=== PATIENT | female | born 1990 | race African-American/Black ===

== ENCOUNTER 2022-02-23 15:31 | Observation (INO) | payer OTHER, SELFPAY ==
[2022-02-23] VITALS (38 sets, daily range): BP systolic 113–170; BP diastolic 63–130; PULSE 81–115; RESP 14–29; TEMP 36.6; O2SAT 99–100
--- NOTE | ~2022-02-23 | CT_ITS ---
EXAMINATION: CT cervical spine wo con DATE: 02/23/2022 17:16 INDICATION: Neck pain after trauma TECHNIQUE: Computed tomography (CT) of the cervical spine was performed without intravenous contrast. The dose-length product was 437 mGy-cm. Automated exposure control and iterative reconstruction tech [employer] were employed. COMPARISON: None FINDINGS: Lung apices are normal. Straightening of cervical lordosis, likely due to muscle spasm or p atient positioning. No significant paraspinal soft tissue abnormality. Craniovertebral junction is no rmal. Odontoid process within normal limits. No evidence for perched facet. Normal cervical alignment . IMPRESSION: 1. No acute abnormality of the cervical spine. Reviewed, dictated and finalized at location A.
--- NOTE | ~2022-02-23 | XR_ITS ---
XR knee RT 3V DATE: 02/23/2022 17:04 INDICATION: Fall down stairs. Right knee injury, pain TECHNIQUE: 3 views COMPARISON: None FINDINGS: No fracture or dislocation or joint effusion. No periosteal reaction or bone destruction. Mild loss of height of the department joint space. No spurring, radial opaque intra-articular loose b dave or chondrocalcinosis. IMPRESSION: No fracture or dislocation or joint effusion Mild loss of height of medial compartment joint space Reviewed, dictated and finalized at location B.
--- NOTE | ~2022-02-23 | US_ITS ---
EXAMINATION: US OB follow up DATE: 02/23/2022 16:54 INDICATION: Status post fall. . TECHNIQUE: Real-time transabdominal obstetric ultrasound. FINDINGS: No prior studies for comparison. There is a single living fetus in vertex presentation. The placenta is fundal without placenta previ a. cardiac activity and movement is noted with a heart rate of 173 beats per minute. T he amniotic fluid volume is normal. LEDY measures 14 cm. The following biometric data were obtained: BPD: 85mm corresponds to gestational age 34 weeks 1 days. Head circumference: 318mm corresponds to gestational age 35 weeks 6 days. Abdominal circumference: 294mm corresponds to gestational age 33 weeks 3 days. Femur length: 64mm corresponds to gestational age 33 weeks 0 days. Estimated weight: 2232grams +/- 335grams.] IMPRESSION: 1. Single living intrauterine in vertex presentation with an estimated gestational age of 34 weeks 1 days by current ultrasound. 2. The placenta is grossly normal, without suggestion of placenta abruption. However, ultrasound is not diagnostic of abruption since acute hemorrhage can be isoechoic to be placenta. Recommend clinic al correlation. Reviewed, dictated and finalized at location A. IMPRESSION: 1. Single living intrauterine in vertex presentation with an estimat ed gestational age of 34 weeks 1 days by current ultrasound. 2. The placenta is grossly normal, without suggestion of placenta abruption. H owever, ultrasound is not diagnostic of abruption since acute hemorrhage can be isoechoic to be placenta. Recommend clinical correlation.
[2022-02-23 15:42] LABS: Glucose Point of Care 84 mg/dl (65-105)
--- NOTE | 2022-02-23 15:52 | PC.NURSE ---
Patient informed Carito in radiology that she would like to wait for the ultrasound before anything else to make sure baby is okay.
[2022-02-23 16:38] LABS: Basophils Percent Auto 0.2 % (0.2-1.2); Hematocrit 35.2 % (37.0-47.0); Hemoglobin 11.5 g/dL (12.0-15.0); Immature Granulocyte Absolute 0.14 K/mm3 (0.00-0.031); Immature Granulocyte Percent A 1.4 % (0-0.5); Lymphocytes Absolute Auto 1.84 K/mm3 (0.9-3.2); Mean Corpuscular HGB Conc 32.7 g/dl (32-36); Mean Corpuscular Hemoglobin 28.6 pg (26-34); Mean Corpuscular Volume 87.6 fl (80-100); Mean Platelet Volume 12.2 fl (7.4-10.4); Monocytes Absolute Auto 0.7 K/mm3 (0.1-0.6); Monocytes Percent Auto 7.2 % (2.6-8.5); Neutrophils Absolute Auto 7.5 K/mm3 (1.3-6.7); Neutrophils Percent Auto 73.2 % (45.5-73.1); Platelet Count Result 227 k/mm3 (150-375); Red Blood Count 4.02 M/mm3 (4.2-5.4); Red Cell Distribution Width 14.5 % (11.5-14.5); White Blood Count 10.2 K/mm3 (4.5-10.0)
[2022-02-23] MEDS: SODIUM CHLORIDE 0.9% IV 1,000 ML 999 ML IV CONT (16:38)
--- NOTE | 2022-02-23 16:40 | PC.NURSE ---
VALENTINA Angela from OB called creative writer to inform creative writer that during the NST they performed patient is kathy alot. Convention Services Manager consulted Dr. Braswell and orders for IV fluids given.
[2022-02-23 16:45] LABS: Alanine Aminotransferase 17 U/L (6-35); Albumin Level 3.4 g/dL (3.5-5.1); Alkaline Phosphatase 125 U/L (38-126); Anion Gap 11 mmol/L (8-16); Aspartate Amino Transferase 26 U/L (14-36); Bilirubin,Total 0.4 mg/dL (0.2-1.3); Blood Urea Nitrogen 4 mg/dL (7-17); Carbon Dioxide 17 mmol/L (22-30); Chloride 108 mmol/L (98-107); Estimated CRCL calculation 162 ml/min; Estimated Glomerular Filt Rate > 60; Glucose 77 mg/dL (65-110); Potassium 3.6 mmol/L (3.4-5.0); Sodium 136 mmol/L (137-145)
--- NOTE | 2022-02-23 17:18 | ED.GENADULT ---
HPI - General Adult General Chief complaint: Fall Stated complaint: fell downstairs Time Seen by Provider: 02/23/22 15:32 History of Present Illness HPI narrative: Patient is a 31-year-old female who is approximately 34 weeks in gestation that presents to the ER after a fall down some steps. She was alf down her stairs when the handrail pulled out of the wall and she fell forwards. She is unsure if she struck her abdomen and she did not lose consciousness. She reports that occurred too quickly for her to know what actually got injured. She does have pain in her right knee and has limitation in bending due to the discomfort. She also reports pain to her right thumb. No change in vision or hearing. She is having no abdominal pain at this time. No vaginal bleeding or loss of fluid from her vagina. She is seen by a technical agronomist in [facility], she is also followed by maternal- medicine at [facility] due to the fact that she has gestational diabetes and she has a cerclage that is in place. Patient is also having pain in her left neck that is worse with turning her head. No numbness or tingling upper or lower extremities. Related Data Allergies Allergy/AdvReac Type Severity Reaction Status Date / Time No Known Allergies Allergy Verified 02/23/22 17:22 Review of Systems Review of Systems: All systems reviewed & are unremarkable except as noted in HPI and below Constitutional: Constitutional: Denies chills, Denies fatigue and Denies fever(s) Eyes: Eyes: Denies change in vision ENT: Denies nasal congestion and Denies sore throat Gastrointestinal: Gastrointestinal: Denies abdominal pain, Denies nausea and Denies vomiting Genitourinary: Genitourinary: Denies abnormal vaginal bleeding, Denies nocturia, Denies dysuria, Denies pelvic pain and Denies vaginal discharge Musculoskeletal: Musculoskeletal: Denies myalgias, Reports arthralgias and Denies joint swelling Neurologic: Denies syncope, Denies headache(s) and Denies focal weakness PMFSH Past Medical History Medical History (Updated 02/23/22 @ 17:59 by Levon Braswell MD) Cervical cerclage suture present Gestational diabetes Surgical History Surgical History (Updated 02/23/22 @ 17:21 by Levon Braswell MD) No pertinent past surgical history Social History Social History (Updated 02/23/22 @ 17:21 by Levon Braswell MD) Smoking status: Never smoker Exam Narrative: GENERAL: Well-appearing, well-nourished, and in no acute distress. HEAD: Normocephalic, atraumatic. EYES: PERRL and EOMI. small abrasion lateral to the left eye. ENT: Nares clear, no rhinorrhea or epistaxis. Mucous membranes moist. NECK: Supple. In place. No midline tenderness but does have left paraspinal muscle tenderness without spasm. CHEST: Clear to auscultation. No respiratory distress. HEART: Regular rate and rhythm. Normal peripheral pulses. ABDOMEN: Soft, gravid abdomen with positive movement and slight discomfort on the right lower aspect without bruising or abrasion or swelling. EXTREMITIES: Tender palpation medial aspect right knee with limited range of motion due to pain. No effusion/abrasion/contusion. Normal range of motion of the left lower extremity and bilateral upper extremities. There is mild tenderness over the base of the thumb on the right side. SKIN: Warm, dry, no rash. NEURO: Alert and oriented x3. PSYCH: Normal mood and affect. Course Course Emergency Course: Patient resting comfortably. C-collar cleared. Informed of results. Discussed case with Dr. Bailey. He would like patient sent over to OB for some continuous monitoring. Patient has requested an Jonathan wrap for her knee which she has now been just fine. Vital Signs Vital signs: Vital Signs Temperature 97.9 F 02/23/22 15:33 Pulse Rate 115 H 02/23/22 15:33 Respiratory Rate 20 02/23/22 15:33 Pulse Oximetry 100 02/23/22 15:33 Oxygen Delivery Room Air 02/23/22 15:33 [place]
--- NOTE | 2022-02-23 18:00 | PC.NURSE ---
Per Dr. Braswell, patient to be discharged from the ED and taken to OB for NST.
[2022-02-23] MEDS: LACTATED RINGERS 1,000 ML 999 ML IV CONT (19:10)
[2022-02-23] MEDS: TERBUTALINE SULFATE 1 MG/ML VIAL 0.25 MG SUB-Q (19:10)
[2022-02-23] MEDS: NIFEdipine 10 MG CAPSULE 20 MG PO (19:54)
--- NOTE | 2022-02-23 20:19 | PM.IMHP ---
H&P: HPI History of Present Illness Date/Time: 02/23/22 20:19 Chief Complaint: Fall, contractions Narrative: This patient is a 31-year-old multiparous female at 33 weeks and 2/7 days. patient has history of her delivery, incompetent cervix and has a cerclage placed. She reports good movement. She denies any loss of fluid, she denies any vaginal bleeding. She does report contractions. her contractions are regular. Reports having contractions about every 7 minutes at this time. She reports a fall at home. Reports knee pain. She also reports some shoulder pain. She was seen in the ER. She was evaluated there for her trauma. She presented to labor and delivery for prolonged monitoring. She was uncomfortable with contractions. She reports moderate discomfort with each contraction. Review of Systems Review of Systems: All systems reviewed & are unremarkable except as noted in HPI and below Constitutional: Constitutional: Denies chills, Denies fatigue, Denies fever(s) and Denies weakness Eyes: Eyes: Denies blurry vision, Denies change in vision, Denies loss of peripheral vision, Denies loss of vision, Denies other visual disturbances and Denies eye pain ENT: Denies vertigo, Denies dizziness, Denies hearing loss, Denies mouth pain, Denies nasal obstruction, Denies neck mass and Denies neck pain Cardiovascular: Cardiovascular: Denies chest pain, Denies diaphoresis, Denies syncope, Denies leg edema and Denies dyspnea Respiratory: Respiratory: Denies chest congestion, Denies cough, Denies hemoptysis, Denies dyspnea and Denies wheezing Gastrointestinal: Gastrointestinal: Denies abdominal pain, Denies constipation, Denies diarrhea, Denies nausea and Denies vomiting Genitourinary: Genitourinary: Denies hematuria, Denies change in libido, Denies nocturia, Denies genital lesions, Denies flank pain and Denies urinary urgency Musculoskeletal: Musculoskeletal: Denies abnormal gait, Denies back pain, Denies myalgias, Denies arthralgias, Denies joint swelling, Denies muscle weakness and Denies neck pain Integumentary/Breasts: Skin/Breast: Denies swelling, Denies breast pain, Denies breast mass, Denies dry skin, Denies nipple discharge, Denies unusual bruising and Denies jaundice Neurologic: Denies Neuro-related abnormal movements, Denies Abnormal speech present, Denies abnormal gait, Denies behavioral changes, Denies confusion, Denies vertigo, Denies dizziness, Denies syncope, Denies loss of vision, Denies memory loss, Denies convulsions and Denies weakness Psychiatric: Psychiatric: Denies abnormal sleep pattern, Denies behavioral changes, Denies change in libido, Denies confusion, Denies depression, Denies anhedonia and Denies memory loss Endocrine: Endocrine: Reports no additional endocrine complaints, Denies change in libido and Denies fatigue Hematologic/Lymphatic: Hematologic/Lymphatic: Reports no additional hematologic/lymphatic complaints Allergic/Immunologic: Allergic/Immunologic: Reports no additional allergic/immunologic complaints and Denies wheezing PMFSH Past Medical History Medical History (Updated 02/23/22 @ 20:23 by Nemesio Bailey MD) Cervical cerclage suture present Gestational diabetes Surgical History Surgical History (Updated 02/23/22 @ 17:21 by Levon Braswell MD) No pertinent past surgical history Social History Social History (Updated 02/23/22 @ 17:21 by Levon Braswell MD) Smoking status: Never smoker Meds Home Medications and Allergies Allergies Allergy/AdvReac Type Severity Reaction Status Date / Time No Known Allergies Allergy Verified 02/23/22 17:22 Vital Signs Vital Signs - 24 hr 02/23/22 15:33 02/23/22 15:39 02/23/22 15:41 Temperature 97.9 F Pulse Rate 115 H 89 95 Respiratory Rate 20 21 H 19 Blood Pressure 170/130 H 128/94 H Pulse Oximetry 100 99 99 Oxygen Delivery Room Air 02/23/22 15:46 02/23/22 16:01 02/23/22 16:16 Temperature Pulse Rat
--- NOTE | 2022-02-23 20:24 | OBADM ---
This patient, Karen Brooke, admitted to the OB room [facility] for observation. Patient/family oriented to hospital policies and general routines including ID bracelet, bed and alarms, visiting hours, pain management, procedures, bathroom and other care routines, personal items, smoking policy, room service/diet, and visiting hours. Patient/Family are encouraged to report perceived risks to care and to ask questions if they do not understand what they are told or what they should do.
== END 2022-02-23 21:19 | disposition home or self-care (01) ==
LOC: ANHED 17:59 → ANHOBPP 18:21
PROVIDERS: Admitting Provider Obstetrics & Gynecology; Emergency Provider Emergency Medicine; Visit Provider Obstetrics & Gynecology
DX: Z04.3 Encounter for examination and observation following other accident (principal); S80.01XA Contusion of right knee, initial encounter; N88.3 Incompetence of cervix uteri; O47.03 False labor before 37 completed weeks of gestation, third trimester; O24.419 Gestational diabetes mellitus in pregnancy, unspecified control; M25.519 Pain in unspecified shoulder; M79.644 Pain in right finger(s); Z3A.33 33 weeks gestation of pregnancy; W10.8XXA Fall (on) (from) other stairs and steps, initial encounter
CPT/HCPCS: 36415; 59025; 72125; 73562; 76816; 80053; 82948; 85025; 85460; 86850; 86900; 86901; 96372; 99199; 99285; A9270; J3105; J7030; J7120

== ENCOUNTER 2022-04-22 15:37 | Emergency (ER) | payer OTHER, SELFPAY ==
[2022-04-22 15:38] VITALS: BP 163/104; PULSE 80; RESP 16; TEMP 36.6; O2SAT 100
[2022-04-22 16:15] VITALS: BP 149/98; PULSE 82; RESP 17; O2SAT 99
[2022-04-22] MEDS: FAMOTIDINE 20 MG/2 ML VIAL IV PUSH (16:49)
[2022-04-22] MEDS: diphenhydrAMINE HCl INJ 50 MG/ML VIAL 25 MG IV PUSH ×2 (16:49→17:43)
--- NOTE | 2022-04-22 16:49 | ED.GENADULT ---
HPI - General Adult General Chief complaint: Allergic Reaction Stated complaint: allergic reaction Time Seen by Provider: 04/22/22 16:06 History of Present Illness HPI narrative: Patient is a 31-year-old female who presents ER with allergic reaction. She reports yesterday at 5 PM she began having itching rash to her neck and groin and her chest. It was under her breast. She went to an ER last night and received an IM shot of corticosteroids and then was also given Benadryl. She was discharged with Benadryl, Pepcid, and a Medrol Dosepak. Patient did take her methylprednisolone today. She reports today she had some [employer] around 1130 and then at 3 PM she started getting recurrent rash to her face and neck and arms. She is itchy over her palms. Her symptoms yesterday occurred after eating [id number] at 1130 but her symptoms did not start until 5 PM. Denies any outdoor exposures or new animals. No changes in her fabric softener or detergent. No one else in the house has similar symptoms. She has not taken any additional Benadryl today. Currently she is also having some tingling in her mouth. She has been taking no ibuprofen she takes no prescription medications prior to onset of the symptoms. Related Data Allergies Allergy/AdvReac Type Severity Reaction Status Date / Time No Known Allergies Allergy Verified 04/22/22 16:07 Review of Systems Review of Systems: All systems reviewed & are unremarkable except as noted in HPI and below Constitutional: Constitutional: Denies chills and Denies fever(s) ENT: Denies nasal congestion and Denies sore throat Cardiovascular: Cardiovascular: Denies chest pain, Denies radiating jaw, neck or arm pain and Denies slow heart rate Respiratory: Respiratory: Denies cough and Denies dyspnea Gastrointestinal: Gastrointestinal: Denies abdominal pain, Denies nausea and Denies vomiting Integumentary/Breasts: Skin/Breast: Reports erythema, Reports rash and Denies skin ulcer Allergic/Immunologic: Allergic/Immunologic: Denies lip swelling, Denies throat swelling, Denies tongue swelling and Denies wheezing PMFSH Past Medical History Medical History (Updated 04/22/22 @ 18:40 by Levon Braswell MD) Cervical cerclage suture present Gestational diabetes Surgical History Surgical History (Updated 02/23/22 @ 17:21 by Levon Braswell MD) No pertinent past surgical history Social History Social History (Updated 02/23/22 @ 17:21 by Levon Braswell MD) Smoking status: Never smoker Exam Narrative: GENERAL: Well-appearing, well-nourished, and in no acute distress. HEAD: Normocephalic, atraumatic. EYES: PERRL and EOMI. ENT: Mucous membranes moist. Normal-appearing posterior oropharynx. CHEST: Clear to auscultation. No respiratory distress. HEART: Regular rate and rhythm. Normal peripheral pulses. ABDOMEN: Soft, nontender, nondistende. EXTREMITIES: Normal range of motion. No edema. SKIN: Warm, dry. Urticarial rash over the bridge of the nose, around the lips and midline forehead. She also has red urticaria to the palms and rash to bilateral flanks with some excoriations. NEURO: Alert and oriented x3. PSYCH: Normal mood and affect. Course Course Emergency Course: Rash significant improved but not all the way gone after Benadryl 50 mg and IV Pepcid. No difficulty breathing or swallowing and no sensation in the mouth or throat. Patient will be given EpiPen for home as a precaution. Recommend she take her Benadryl scheduled which she has not been. Also recommend the same for her Pepcid. I have also recommend she take a daily Zyrtec and follow-up with an inserter operator. She could have idiopathic urticaria as there is no identifiable factor for her rash. Vital Signs Vital signs: Vital Signs Temperature 97.9 F 04/22/22 15:38 Pulse Rate 80 04/22/22 15:38 Respiratory Rate 16 04/22/22 15:38 Blood Pressure 163/104 H 04/22/22 15:38 Pulse Oximetry 100 04/22/22 15:38 Oxyg
[2022-04-22 16:55] LABS: Basophils Percent Auto 0.2 % (0.2-1.2); Hematocrit 38.6 % (37.0-47.0); Hemoglobin 12.3 g/dL (12.0-15.0); Immature Granulocyte Absolute 0.01 K/mm3 (0.00-0.031); Immature Granulocyte Percent A 0.2 % (0-0.5); Lymphocytes Absolute Auto 0.88 K/mm3 (0.9-3.2); Lymphocytes Percent Auto 17.2 % (18.3-44.2); Mean Corpuscular HGB Conc 31.9 g/dl (32-36); Mean Corpuscular Volume 84.6 fl (80-100); Mean Platelet Volume 11.5 fl (7.4-10.4); Monocytes Percent Auto 0.8 % (2.6-8.5); Neutrophils Absolute Auto 4.2 K/mm3 (1.3-6.7); Neutrophils Percent Auto 81.6 % (45.5-73.1); Platelet Count Result 316 k/mm3 (150-375); Red Blood Count 4.56 M/mm3 (4.2-5.4); White Blood Count 5.1 K/mm3 (4.5-10.0)
[2022-04-22 17:04] LABS: Anion Gap 9 mmol/L (8-16); Blood Urea Nitrogen 9 mg/dL (7-17); Carbon Dioxide 20 mmol/L (22-30); Chloride 109 mmol/L (98-107); Estimated CRCL calculation 93 ml/min; Estimated Glomerular Filt Rate > 60; Glucose 172 mg/dL (65-110); Potassium 4.2 mmol/L (3.4-5.0); Sodium 138 mmol/L (137-145)
[2022-04-22 17:34] VITALS: BP 158/94; PULSE 73; RESP 17; O2SAT 100
[2022-04-22 18:48] VITALS: BP 160/96; PULSE 67; RESP 16; O2SAT 100
== END 2022-04-22 18:49 | disposition home or self-care (01) ==
PROVIDERS: Emergency Provider Emergency Medicine
DX: L50.1 Idiopathic urticaria (principal)
CPT/HCPCS: 36415; 80048; 85025; 96374; 96375; 99284; J1200